=== PATIENT | male | born 1950 | race Caucasian/White ===

== ENCOUNTER 2018-01-04 07:47 | Inpatient (IN) | payer MEDICARE ==
[2018-01-04] VITALS (7 sets, daily range): BP systolic 101–126; BP diastolic 65–74
[~2018-01-04] VITALS: Ht 170.2 cm; Wt 52.2 kg
[~2018-01-04 07:47] MED LIST: AMLO10TA80 PO; ASPI-867 PO; METO25TA6 PO; TERA5CAP4 PO
[2018-01-04] MEDS ORDERED: APIX5TAB PO (11:27)
[2018-01-04 11:49] LABS: BASOPHILS % 0.4 % (0.0-2.0); EOSINOPHILS % 0.1 % (0.0-5.0); HEMOGLOBIN. 14.1 g/dL (14.0-18.0); LYMPHOCYTES % 13.4 % (20.0-50.0); MEAN CORPUSCULAR HEMOGLOBIN 31.2 pg (28.0-32.0); MEAN CORPUSCULAR VOLUME 90.3 fL (80.0-94.0); MEAN PLATELET VOLUME 8.7 fl (7.4-10.4); MONOCYTES % 6.9 % (2.0-8.0); NEUTROPHILS % 79.2 % (40.0-76.0); PLATELET 159 x1000/uL (130-400); RED BLOOD CELL COUNT 4.54 mill/uL (4.7-6.1); RED CELL DISTRIBUTION WIDTH 13.9 % (11.6-14.6)
[2018-01-04 11:54] LABS: INR 1.1; PARTIAL THROMBOPLASTIN TIME 28.9 sec (23.4-31.0)
[2018-01-04 12:26] LABS: CHLORIDE 106 mEq/L (98-107)
[2018-01-04] MEDS ORDERED: DEXAMETHASONE 4MG/ML 1ML VIAL ONE (13:07)
[2018-01-04] MEDS ORDERED: PROPOFOL 200MG/20ML VIAL IV ONE (13:07)
[2018-01-04] MEDS ORDERED: MIDAZOLAM HCL 2 MG/2 ML VIAL ONE (13:07)
[2018-01-04] MEDS ORDERED: ONDANSETRON HCL 4MG/2ML VIAL ONE (13:07)
[2018-01-04] MEDS ORDERED: FENTANYL CITRATE/PF 50MCG/ML 2ML VIAL ONE (13:07)
[2018-01-04] MEDS ORDERED: IODIXANOL 320MG/ML 100 ML BOTTLE IV ONE (13:09)
[2018-01-04] MEDS ORDERED: LIDOCAINE HCL/PF 1% 10 MG/ML 5ML VIAL ONE ×4 (13:15→14:07)
[2018-01-04] MEDS ORDERED: MEPERIDINE HCL/PF 25MG/ML CPJ IV PRN (13:15)
[2018-01-04] MEDS ORDERED: GENTAMICIN/NS IRRIGATION 500 ML IR ONE (13:15)
[2018-01-04] MEDS ORDERED: HYDROMORPHONE HCL/PF 2MG/ML CPJ IV PRN (13:15)
[2018-01-04] MEDS ORDERED: ONDANSETRON HCL 4MG/2ML VIAL IV PRN (13:15)
[2018-01-04] MEDS ORDERED: LABETALOL 5MG/ML SYR 20 MG/4 ML SYRINGE IV PRN (13:15)
[2018-01-04] MEDS ORDERED: GENTAMICIN SULF 40MG/ML 2ML VIAL ONE (13:15)
[2018-01-04] MEDS ORDERED: HYDROCODONE/ACETAMINOPHEN 5/325MG TABLET PO PRN (15:00)
[2018-01-04] MEDS: APIXABAN 5 MG TABLET PO SCH (16:43)
[2018-01-04] MEDS ORDERED: DIGOXIN 250MCG TABLET PO SCH (18:00)
[2018-01-04] MEDS ORDERED: TERAZOSIN HCL 5MG CAPSULE PO SCH (21:00)
[2018-01-04] MEDS: METOPROLOL TARTRATE 25MG TABLET PO SCH (21:42)
[2018-01-04] MEDS: DILTIAZEM HCL 60MG TABLET PO SCH (22:30)
[2018-01-05] VITALS (14 sets, daily range): BP systolic 92–157; BP diastolic 50–76
[2018-01-05] MEDS: APIXABAN 5 MG TABLET PO SCH ×2 (00:44→08:41)
[2018-01-05] MEDS: DILTIAZEM HCL 60MG TABLET PO SCH ×3 (06:00→11:30)
[2018-01-05 06:09] LABS: BASOPHILS % 0.2 % (0.0-2.0); EOSINOPHILS % 0.3 % (0.0-5.0); HEMATOCRIT. 38.4 % (42.0-52.0); HEMOGLOBIN. 13.2 g/dL (14.0-18.0); LYMPHOCYTES % 9.7 % (20.0-50.0); MEAN CORPUSCULAR HEMOGLOBIN 30.9 pg (28.0-32.0); MEAN CORPUSCULAR VOLUME 89.6 fL (80.0-94.0); MEAN PLATELET VOLUME 8.5 fl (7.4-10.4); MONOCYTES % 7.8 % (2.0-8.0); PLATELET 149 x1000/uL (130-400); RED BLOOD CELL COUNT 4.28 mill/uL (4.7-6.1); RED CELL DISTRIBUTION WIDTH 13.2 % (11.6-14.6)
[2018-01-05 07:29] LABS: CHLORIDE 101 mEq/L (98-107)
[2018-01-05] MEDS: METOPROLOL TARTRATE 25MG TABLET PO SCH (08:42)
[2018-01-05] MEDS ORDERED: AMLODIPINE 10MG TABLET PO SCH (09:00)
== END 2018-01-05 16:05 | disposition home or self-care (01) | DRG 243 ==
LOC: OR 07:47 → 3WST 07:48
PROVIDERS: ADMIT Internal Medicine Clinical Cardiac Electrophysiology; ATTEND Internal Medicine Clinical Cardiac Electrophysiology
PROC: 02HK3JZ Insertion of Pacemaker Lead into Right Ventricle, Percutaneous Approach (ICD-10-PCS; 2018-01-04)
PROC: B5171ZZ Fluoroscopy of Left Subclavian Vein using Low Osmolar Contrast (ICD-10-PCS; 2018-01-04)
PROC: 0JH604Z Insertion of Pacemaker, Single Chamber into Chest Subcutaneous Tissue and Fascia, Open Approach (ICD-10-PCS; principal; 2018-01-04 14:30)
DX: I49.5 Sick sinus syndrome (principal); I48.1 Persistent atrial fibrillation; I48.92 Unspecified atrial flutter; I48.4 Atypical atrial flutter; I10 Essential (primary) hypertension; Z82.49 Family history of ischemic heart disease and other diseases of the circulatory system; Z79.899 Other long term (current) drug therapy
CPT/HCPCS: 33207; 36415; 71045; 75820; 80048; 85025; 85610; 85730; 93005; A4565; C1786; C1892; C1893; C1898; J1100; J1580; J2250; J2405; J2704; J3010; J3490; J7040; J7050; Q9967